=== PATIENT | male | born 1985 | race Caucasian/White ===

== ENCOUNTER 2017-06-30 12:36 | Day surgery (SDC) | payer BC ==
[2017-06-25 11:08] VITALS: BMI 33.2
[~2017-06-30 12:36] MED LIST: DEXAMETHASONE SOD PHOSPHATE 10 MG/ML 1 ML VIAL IV ONE; FAMOTIDINE 20 MG/2 ML VIAL IV PRN; HEPARIN SODIUM,PORCINE 5,000 UNIT/ML 1 ML VIAL SQ ONE; MIDAZOLAM 2 MG/2 ML VIAL IV PRN; ONDANSETRON 4 MG/2 ML VIAL IVP PRN; SCOPOLAMINE 1.5MG/72HR PATCH TRANSDERM ONE; ceFAZolin 2 GM in SODIUM CHLORIDE 0.9% 100 ML IVPB ONE
[2017-06-30] MEDS ORDERED: LIDOCAINE 1% 20 ML VIAL (10MG/ML) FOR IV START INTRADERMA ONE (13:17)
[2017-06-30] MEDS: LACTATED RINGERS 1,000 ML IV SCH (13:19)
--- NOTE | 2017-06-30 15:17 | P.GSHP ---
History of Present Illness H&P Date: 06/30/17 Chief Complaint: Umbilical hernia, left inguinal hernia This is a 31-year-old male who presents today for laparoscopic robotic system repair of umbilical hernia and left inguinal hernia. Past Medical History Past Medical History: Asthma History of Any Multi-Drug Resistant Organisms: None Reported Additional Past Surgical History / Comment(s): colonoscopy Past Anesthesia/Blood Transfusion Reactions: No Reported Reaction Smoking Status: Never smoker - Past Family History Mother Family Medical History: Cancer Medications and Allergies Home Medications Medication Instructions Recorded Confirmed Type Albuterol Inhaler [Ventolin Hfa 1 - 2 puff INHALATION Q6HR PRN 06/25/17 History Inhaler] Cetirizine HCl [Zyrtec] 10 mg PO DAILY PRN 06/25/17 06/30/17 History Allergies Allergy/AdvReac Type Severity Reaction Status Date / Time Penicillins Allergy Rash/Hives Verified 06/30/17 13:15 Surgical - Exam Vital Signs Temp Pulse Resp BP Pulse Ox 98 F 54 L 16 134/85 98 06/30/17 13:23 06/30/17 13:23 06/30/17 13:23 06/30/17 13:23 06/30/17 13:23 - General well developed, no distress - Eyes PERRL - ENT normal pinna - Neck no masses - Respiratory normal expansion - Cardiovascular Rhythm: regular - Abdomen Abdomen: soft, non tender Hernia: inguinal (Left inguinal hernia), umbilical Assessment and Plan Plan: Left inguinal hernia, umbilical hernia we'll perform laparoscopic robotic- assisted repair.
[2017-06-30] MEDS ORDERED: fentaNYL (PF) 50 MCG/ML 2 ML AMP ONE (15:41)
[2017-06-30] MEDS ORDERED: MIDAZOLAM 2 MG/2 ML VIAL ONE (15:41)
[2017-06-30] MEDS ORDERED: PROPOFOL 10 MG/ML 20 ML VIAL IV ONE (15:41)
[2017-06-30] MEDS ORDERED: ePHEDrine 50 MG/ML 1 ML AMP ONE (15:41)
[2017-06-30] MEDS ORDERED: SUCCINYLCHOLINE CHLORIDE 100 MG/5 ML SYR IV ONE (15:41)
[2017-06-30] MEDS ORDERED: HYDROmorphone (PF) 1 MG/ML ONE (15:41)
[2017-06-30] MEDS ORDERED: GLYCOPYRROLATE 0.2 MG/ML 2 ML VIAL ONE (15:41)
[2017-06-30] MEDS ORDERED: NEOSTIGMINE 1 MG/ML 10 ML VIAL ONE (15:41)
[2017-06-30] MEDS ORDERED: ROCURONIUM BROMIDE 10 MG/ML 10 ML VIAL IV ONE ×2 (15:41)
[2017-06-30] MEDS ORDERED: KETOROLAC 30 MG/ML 1 ML VIAL ONE (15:41)
[2017-06-30] MEDS ORDERED: LIDOCAINE 1%-EPI 1:100,000 20 ML VIAL SQ ONE ×2 (16:09→16:21)
[2017-06-30] MEDS ORDERED: BUPIVACAINE (PF) 0.25% 30 ML VIAL SQ ONE ×2 (16:10→16:21)
--- NOTE | 2017-06-30 17:01 | P.OP ---
Date of Procedure: 06/30/17 Preoperative Diagnosis: Umbilical hernia Left inguinal hernia Postoperative Diagnosis: Umbilical hernia Left inguinal hernia Procedure(s) Performed: Laparoscopic robotic-assisted repair of umbilical and left inguinal hernia Implants: Anesthesia: [place] Surgeon: [place] Estimated Blood Loss (ml): 5 Pathology: none sent Condition: stable Disposition: PACU Indications for Procedure: Operative Findings: Description of Procedure: The patient's placed on the operating table in the supine position. The patient received general anesthesia. The patient's abdomen was prepped and draped in usual sterile fashion. The skin was anesthetized 1% local Xylocaine at the incision sites. Using an 11 blade a skin incision was made at the umbilicus. The fascia was grasped with a [place] and then the peritoneal cavity was entered with the Veress needle. The patient had an umbilical hernia Position of the Veress needle was confirmed with a positive drop test. After adequate insufflation a 5 mm trocar was placed into the peritoneal cavity. The Laparoscope was placed the peritoneal cavity. And a robotic 8 mm trocar was placed in the right lateral position and then another 8 mm robotic trochars placed in the left lateral position. The original 5 mm trocar was exchanged for a 12 mm trocar. The 12 mm trocar was placed through the umbilical hernia. The patient was placed in reverse Trendelenburg and then the patient was docked to the robot. Next the peritoneum over top of the hernia was incised and then using blunt and sharp dissection and electrocautery the hernia sac was dissected free from the floor of the inguinal canal. The hernia sac was completely reduced into the peritoneal cavity. And then using the [employer] metal work duct installer mesh the hernia was repaired. The peritoneum was then sutured with 20V lock suture. The patient was then undocked the robot. The needle was withdrawn from the peritoneal cavity. The umbilical hernia site was closed with 0 Ethibond suture. The skin was closed interrupted 3-0 Monocryl suture. Dermabond dressing was applied. Patient was sent to recovery in stable condition.
[2017-06-30] MEDS: HYDROmorphone 1 MG/ML 1 ML SYRINGE IVP PRN ×2 (17:08→17:31)
[2017-06-30 17:13] VITALS: TEMP 97.1
[2017-06-30 17:18] VITALS: RESP 16
[2017-06-30] MEDS ORDERED: HYDROcodone/APAP 7.5-325MG 1 EACH TAB PO ONE (18:24)
[2017-06-30 19:14] VITALS: BP 125/73; PULSE 79
== END 2017-06-30 19:14 | disposition home or self-care (01) ==
LOC: OR 12:36
PROVIDERS: ATTEND Surgery
DX: K42.9 Umbilical hernia without obstruction or gangrene (principal); K40.90 Unilateral inguinal hernia, without obstruction or gangrene, not specified as recurrent; J45.909 Unspecified asthma, uncomplicated; F17.220 Nicotine dependence, chewing tobacco, uncomplicated; Z79.899 Other long term (current) drug therapy; Z88.0 Allergy status to penicillin
CPT/HCPCS: 49652; 49650; J2250; J1100; J2710; J0690; J2405; J3010; J1885; J1170; J0330; J2704